=== PATIENT | male | born 1975 | race Caucasian/White ===

== ENCOUNTER 2017-03-14 13:45 | Emergency (ER) | payer SELFPAY ==
[2017-03-14 13:56] VITALS: TEMP 97
[2017-03-14] MEDS ORDERED: VANCOMYCIN HCL INJ 1,000 MG in SODIUM CHLORIDE 0.9% 250ML 250 ML IVPB ONE (14:18)
--- NOTE | 2017-03-14 14:19 | ED.PDOC ---
History of Present Illness - General Chief Complaint: General Stated Complaint: finger swelling Time Seen by Provider: 03/14/17 14:16 Source: patient Exam Limitations: no limitations Additional Information: PT C/O SWELLING TO RIGHT INDEX FINGER. UNKNOWN TYPE OF INJURIES. - History of Present Illness Timing/Duration: other - 2 DAYS Severity: moderate Improving Factors: nothing Worsening Factors: nothing Associated Symptoms: denies symptoms Allergies/Adverse Reactions: Allergies NO KNOWN ALLERGY Allergy (Verified 03/14/17 13:56) Home Medications: Ambulatory Orders Cephalexin Monohydrate [Keflex] 500 mg PO TID #30 cap 03/14/17 Sulfa/Trimeth 800/160 (Ds) Tab [Bactrim DS Tab] 1 ea PO BID #14 tab 03/14/17 Review of Systems - Review of Systems Constitutional: Denies: chills, fever EENTM: States: no symptoms reported Gastrointestinal/Abdominal: Denies: nausea, vomiting Musculoskeletal: States: other - SWELLING AND PAIN R INDEX FINGER Skin: States: other - SLIGHT ERYTHEMA, DISCOLORATION R INDEX FINGER PRIMARILY FLEXOR SURFACE MID PHALANX Neurological: States: no symptoms reported Endocrine: States: no symptoms reported Hematologic/Lymphatic: States: no symptoms reported Past Medical History (General) - Patient Medical History Hx Asthma: No Surgical History: no surgical history - Vaccination History Hx Tetanus, Diphtheria Vaccination: No Hx Influenza Vaccination: No Hx Pneumococcal Vaccination: No - Social History Hx Tobacco Use: Yes Hx Alcohol Use: No Hx Substance Use: No Hx Substance Use Treatment: No Hx Depression: No - Activities of Daily Living Hospice Agency (if applicable):: None - Female History Patient is a Female of Child Bearing Age (10 -59 yrs old): No Patient : No Family Medical History - Family History Mother Family History: Unknown Physical Exam - Physical Exam General Appearance: Alert, No apparent distress Eye Exam: bilateral normal Ears, Nose, Throat: hearing grossly normal, normal ENT inspection Neck: non-tender, full range of motion, normal inspection Peripheral Pulses: radial,right: 2+ Extremity: other - RIGHT HAND NL EXCEPT FOR INDEX FINGER. MOD SWELLING, SLIGHTLY FLUCTUENT FLEXOR SURFACE MID PHALANX, SLIGHTLY WARM. DECREASED ROM. NVI Neurologic: oriented x 3 Skin Exam: normal color, rash - MILD ERYTHEMA Lymphatic: no adenopathy Progress - Progress Progress: 03/14/17 17:16 PT DOING WELL, VANC HAS FINISHED. IS AGREEABLE TO RETURN TOMORROW FOR WOUND RECHECK. 03/14/17 17:19 SINCE ABSCESS IS SO SUPERFICIAL WILL D/C ON ABX AND PT HAS AGREED TO RETURN TOMORROW AND NEXT DAY FOR WOUND CHECK AND PACKING REMOVAL. - EKG/XRAY/CT XRAY: hand - SOFT TISSUE SWELLING INDEX FINGER. NO FB, NO FX, NO OSTEO Procedures - Incision and Drainage #1 Site: RIGHT INDEX FINGER, FLEXOR SURFACE Procedure and Prep: betadine prep, sterile drapes applied, gauze wick placed, wound culture collected, pus drained Blade Size: 11 Procedure Comments: 1-2 CC PUS OBTAINED. WOULD EXPLORED COMPLETELY WITH HEMOSTATS/FORCEPS. IS SUPERFICIAL, CAN VISUALIZE INSTRUMENTS UNDER THE SKIN. NO TENDON OR MUSCULAR INVOLVEMENT. PACKING PLACED. Departure - Departure Clinical Impression: Abscess of index finger ICD-10 Supporting Text: RIGHT INDEX FINGER Time of Disposition: 17:21 Disposition: Discharge to Home or Self Care Condition: Good Departure Forms: ED Discharge - Pt. Copy, Patient Portal Self Enrollment Instructions: DI for Skin Abscess Prescriptions: Cephalexin Monohydrate [Keflex] 500 mg PO TID #30 cap Sulfa/Trimeth 800/160 (Ds) Tab [Bactrim DS Tab] 1 ea PO BID #14 tab Home Medications: Ambulatory Orders Cephalexin Monohydrate [Keflex] 500 mg PO TID #30 cap 03/14/17 Sulfa/Trimeth 800/160 (Ds) Tab [Bactrim DS Tab] 1 ea PO BID #14 tab 03/14/17
[2017-03-14] MEDS ORDERED: VANCOMYCIN HCL INJ 1,000 MG VIAL IVPB ONE (14:52)
[2017-03-14] MEDS ORDERED: SODIUM CHLORIDE 0.9% 250ML 250 ML ONE (14:53)
--- NOTE | 2017-03-14 14:55 | RAD ---
EXAM DESCRIPTION: Hand,Right 3 Views CLINICAL HISTORY: 41 years,Male,SWOLLEN INDEX FINGER COMPARISON: None FINDINGS: The right hand demonstrates no evidence of fractures or acute abnormalities. There is some mild fragmentation to the tuft of the third digit but appears be old. Soft tissues definite diffuse swelling of the second digit. IMPRESSION: Diffuse swelling of the second digit right hand which could be due to cellulitis or injury but no bony findings. Old appearing fracture to the tuft of the third digit. Electronically signed by: Gerhard Rehman MD 03/14/2017 2:54 PM CDT
[2017-03-14] MEDS ORDERED: BUPIVACAINE 0.5% 30 ML VIAL INJ ONE ×2 (15:32)
[2017-03-14] MEDS ORDERED: LIDOCAINE 1% 10 ML VIAL INJ ONE (15:32)
[2017-03-14] MEDS ORDERED: POVIDONE IODINE 10 % 15 ML UD TOP ONE (15:33)
[2017-03-14] MEDS ORDERED: IODOFORM 1/4 INCH 1 EA BTTL TOP ONE (16:16)
[2017-03-14 17:35] VITALS: BP 114/69; O2SAT 99
[2017-03-15] MEDS ORDERED: NEOMYCIN-BACITRACIN-POLYMYXIN 0.9 GM UD TOP ONE (08:30)
== END 2017-03-14 17:33 | disposition home or self-care (01) ==
LOC: ER 13:45
DX: L02.511 Cutaneous abscess of right hand (principal); Z87.891 Personal history of nicotine dependence
CPT/HCPCS: 36415; 73130; 80048; 85025; 85651; 87040; 87070; J3370; J7050